=== PATIENT | female | born 1960 | race Caucasian/White ===

== ENCOUNTER 2016-09-15 09:53 | Emergency (ER) | payer MEDICARE ==
[~2016-09-15 09:53] MED LIST: CITALOPRAM HBR10 MG PO; IPRAT-ALBUT 0.5-3 ML INH; LEVAQUIN TAB 5500 MG PO; LIPITOR TAB 1010 MG PO; LISINOPRIL20 MG PO; NEURONTIN 300300 MG PO; PREMARIN0.625 MG PO; SEROQUEL XR150 MG PO; SPIRIVA RESPIMAT4 GM INH
[2016-09-15 10:56] LABS: HEMOGLOBIN 13.9 gm/dl (12.3-15.3); RED BLOOD COUNT 4.92 M/UL (4.00-5.10); WHITE BLOOD COUNT 12.5 K/UL (4.5-11.0)
== END 2016-09-15 12:20 | disposition home or self-care (01) ==
LOC: ER1 09:53
PROVIDERS: Physician Assistant
DX: T78.40XA Allergy, unspecified, initial encounter (principal); L50.0 Allergic urticaria; I10 Essential (primary) hypertension; J44.9 Chronic obstructive pulmonary disease, unspecified; F17.210 Nicotine dependence, cigarettes, uncomplicated; F32.9 Major depressive disorder, single episode, unspecified; X58.XXXA Exposure to other specified factors, initial encounter
CPT/HCPCS: 36415; 80053; 85025; 96374; 96375; 99283; J1200; J2405; J2930

== ENCOUNTER 2021-04-07 12:20 | Emergency (ER) | payer MEDICARE ==
[~2021-04-07 12:20] MED LIST changes: +CEFUROXIME500 MG PO; +MEDROL4 MG PO
[2021-04-07 12:52] LABS: HEMOGLOBIN 14.2 gm/dl (12.3-15.3); RED BLOOD COUNT 4.8 M/UL (4.00-5.10); WHITE BLOOD COUNT 11.6 K/UL (4.5-11.0)
[2021-04-07 13:22] LABS: BUN/CREATININE RATIO 10 (0-10)
[2021-04-07] MEDS ORDERED: DOXYCYCLINE HY100 MG PO (15:20)
[2021-04-07] MEDS ORDERED: PROVENTIL HFA6.7 GM INH (15:20)
== END 2021-04-07 17:24 | disposition home or self-care (01) ==
LOC: ER1 12:20
PROVIDERS: Family Medicine
DX: J44.1 Chronic obstructive pulmonary disease with (acute) exacerbation (principal); R79.1 Abnormal coagulation profile; Z20.822 Contact with and (suspected) exposure to COVID-19; F17.200 Nicotine dependence, unspecified, uncomplicated
CPT/HCPCS: 0240U; 71045; 80053; 82550; 82553; 83874; 83880; 84484; 85025; 85379; 93005; 96372; 96374; 96375; 96376; 99285; J1200; J1650; J2930

== ENCOUNTER → 2021-04-08 | Outpatient (CLI) | payer MEDICARE ==
[~2021-04-08] MED LIST changes: +DOXYCYCLINE HY100 MG PO; +PROVENTIL HFA6.7 GM INH
== END ==
LOC: NM 16:57
DX: R79.89 Other specified abnormal findings of blood chemistry (principal)
CPT/HCPCS: 78580; A9540